=== PATIENT | male | born 1975 | race Caucasian/White ===

== ENCOUNTER → 2023-08-17 | Outpatient (CLI) | payer BC | END | disposition home or self-care (01) | LOC: MRI 11:04 | PROVIDERS: ATTEND Family Medicine Sports Medicine | DX: S83.211A Bucket-handle tear of medial meniscus, current injury, right knee, initial encounter (principal); S83.241A Other tear of medial meniscus, current injury, right knee, initial encounter; M25.561 Pain in right knee; M25.562 Pain in left knee; M23.302 Other meniscus derangements, unspecified lateral meniscus, unspecified knee; M94.20 Chondromalacia, unspecified site; X58.XXXA Exposure to other specified factors, initial encounter; Y93.89 Activity, other specified; Y92.89 Other specified places as the place of occurrence of the external cause; Y99.8 Other external cause status | CPT/HCPCS: 73721 ==